=== PATIENT | male | born 1965 | race American Indian/Alaskan Native ===

== ENCOUNTER 2019-03-13 02:12 | Emergency (ER) | payer OTHER ==
[2019-03-13] MEDS ORDERED: ACETAMINOPHEN 500 MG TAB PO ONE (04:02)
[2019-03-13] MEDS ORDERED: IBUPROFEN 600 MG TAB PO ONE (04:02)
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
[2019-03-13 07:06] VITALS: BP 134/74
== END 2019-03-13 06:35 | disposition home or self-care (01) ==
LOC: ED 02:12
DX: M54.2 Cervicalgia (principal); G44.319 Acute post-traumatic headache, not intractable; Z79.1 Long term (current) use of non-steroidal anti-inflammatories (NSAID); V89.2XXA Person injured in unspecified motor-vehicle accident, traffic, initial encounter; Y93.89 Activity, other specified; Y92.488 Other paved roadways as the place of occurrence of the external cause; Y99.8 Other external cause status
CPT/HCPCS: 70450; 72125; 99283